=== PATIENT | female | born 1970 | race African-American/Black ===

== ENCOUNTER 2016-07-18 23:01 | Emergency (ER) | payer OTHER, MEDICAID ==
[2016-07-18 23:07] VITALS: BP 135/88; BMI 36.6
--- NOTE | 2016-07-18 23:44 | DR.GENAD ---
HPI - PCP Primary Care Physician: damien - Complaint/Symptoms Chief Complaint:: diarrhea 6 times today pt states" i might be dehydrated cause i been having diarrhea since thrusday" - Source History Provided: Patient - Mode of Arrival Mode of Arrival: Ambulatory - Timing Onset of Chief Complaint: 07/14/16 PMH - PMH Past Medical History: Yes Past Medical History: Anxiety, Asthma, Depression, Hypertension Past Surgical History: Yes Surgical History: Hysterectomy, Lithotripsy Past Surgical History Comment: lt breast lumpectomy - Family History History of Family Medical Conditions: Yes Family Medical History: Diabetes Mellitus, Cancer, Hypertension - Social History Alcohol Use: None Do you use any recreational Drugs:: No Lives With: Family Lives Where: Home - infectious screening In the last 2 months have you had wt loss of >10#?: NO Have you had fever, night sweats or hemotysis?: No Have you traveled outside the country in the last 6 months?: No Isolation: Standard ROS - Review of Systems Constitutional: No Symptoms Reported Eyes: No Symptoms Reported ENTM: No Symptoms Reported Respiratoy: No Symptoms Reported Cardiovascular: No Symptoms Reported Gastrointestinal/Abdominal: No Symptoms Reported. negative: Abdominal Pain Genitourinary: No Symptoms Reported Neurological: No Symptoms Reported Musculoskeletal: No Symptoms Reported Integumentary: No Symptoms Reported Hematologic/Lymphatic: No Symptoms Reported PE - Vital Signs Vitals: Temperature 98.5 F Pulse Rate 78 Respiratory Rate 18 Blood Pressure [Right Arm] 143/82 Blood Pressure [Left Arm] 130/86 Blood Pressure 135/88 O2 Sat by Pulse Oximetry 99 - General Limitations: No Limitations General Appearance: Alert, In No Apparent Distress, Appears Intoxicated - Head Head Exam: Normal Inspection, Atraumatic - Eyes Eye exam: Normal Appearance, PERRL, EOMI - ENT ENT Exam: Normal Exam External Ear Exam: Normal External Inspection TM/Canal Exam: Bilateral Normal Nose Exam: Normal Nose Exam Mouth Exam: Normal Inspection Throat Exam: Normal Inspection - Neck Neck Exam: Normal Inspection - Chest Chest Inspection: Normal Inspection - Respiratory Respiratory Exam: Normal Lung Sounds Bilat Respiratory Exam: Bilateral Clear to Auscultation - Cardiovascular Cardiovascular Exam: Regular Rate, Normal Rhythm - Abdominal Exam Abdominal Exam: Normal Inspection, Normal Bowel Sounds Abdominal Tenderness: negative: RUQ, RLQ, LUQ, LLQ, Epigastrium, Suprapubic, Diffuse, Mild, Moderate, Severe, Other - Extremities Extremities Exam: Normal Inspection, Full ROM - Back Back Exam: Normal Inspection - Neurologic Neurological Exam: Alert, Oriented X3, CN II-XII Intact - Psychiatric Psychiatric Exam: Normal Affect, Normal Mood - Skin Skin Exam: Warm, Dry, Intact Course - Treatment Treatment: I discussed with patient the rational of not treating acute diarrheal illnesses - Reevaluation 1st: Unchanged - Diagnosis Discharge Problem: Diarrhea Qualifiers: Diarrhea type: unspecified type Qualified Code(s): R19.7 - Diarrhea, unspecified - Discharge Plan Condition: Stable - Follow ups/Referrals Follow ups/Referrals: NARAYAN PALACIOS [Primary Care Provider] - 3 days - Instructions
== END 2016-07-18 23:53 | disposition home or self-care (01) ==
LOC: ER 23:01
DX: R19.7 Diarrhea, unspecified (principal)
CPT/HCPCS: 99281; 99282

== ENCOUNTER 2016-08-01 19:50 | Emergency (ER) | payer OTHER, MEDICAID ==
[2016-08-01 20:06] VITALS: BP 145/83; BMI 37.0
--- NOTE | 2016-08-01 21:25 | DR.GENAD ---
HPI - PCP Primary Care Physician: PHILIP - Complaint/Symptoms Chief Complaint Doctors Comments: History as stated; onset this AM, itches, no known insect bite Chief Complaint:: PT HAS WHELP ON LT RIB AREA AND LT HIP UNKNOW WHAT MAY HAVE CAUSED IT - Source History Provided: Patient - Mode of Arrival Mode of Arrival: Ambulatory - Timing Onset of Chief Complaint: 07/31/16 PMH - PMH Past Medical History: Yes Past Medical History: Anxiety, Asthma, Depression, Hypertension Past Surgical History: Yes Surgical History: Hysterectomy, Lithotripsy - Family History History of Family Medical Conditions: No Family Medical History: Diabetes Mellitus, Cancer, Hypertension - Social History Do you use any recreational Drugs:: No Lives With: Family Lives Where: Home - infectious screening In the last 2 months have you had wt loss of >10#?: NO Have you had fever, night sweats or hemotysis?: No Have you traveled outside the country in the last 6 months?: No Isolation: Standard ROS - Review of Systems Eyes: No Symptoms Reported ENTM: No Symptoms Reported Respiratoy: No Symptoms Reported Cardiovascular: No Symptoms Reported Gastrointestinal/Abdominal: No Symptoms Reported Genitourinary: No Symptoms Reported Neurological: No Symptoms Reported Musculoskeletal: No Symptoms Reported Integumentary: Lesions (erythematous papules) Hematologic/Lymphatic: No Symptoms Reported Endocrine: No Symptoms Reported Psychiatric: No Symptoms Reported All Other Systems: Reviewed and Negative PE - Vital Signs Vitals: Temperature 98.6 F Pulse Rate 95 Respiratory Rate 18 Blood Pressure [Right Arm] 143/82 Blood Pressure [Left Arm] 130/86 Blood Pressure 145/83 O2 Sat by Pulse Oximetry 100 - General Limitations: No Limitations General Appearance: Alert, In No Apparent Distress - Head Head Exam: Normal Inspection, Atraumatic - Eyes Eye exam: Normal Appearance, PERRL, EOMI - ENT ENT Exam: Normal Exam External Ear Exam: Normal External Inspection TM/Canal Exam: Bilateral Normal Nose Exam: Normal Nose Exam Mouth Exam: Normal Inspection Throat Exam: Normal Inspection - Neck Neck Exam: Normal Inspection - Chest Chest Inspection: Normal Inspection - Respiratory Respiratory Exam: Normal Lung Sounds Bilat Respiratory Exam: Bilateral Clear to Auscultation - Cardiovascular Cardiovascular Exam: Regular Rate, Normal Rhythm - Abdominal Exam Abdominal Exam: Normal Inspection, Normal Bowel Sounds Abdominal Tenderness: negative: RUQ, RLQ, LUQ, LLQ, Epigastrium, Suprapubic, Diffuse, Mild, Moderate, Severe, Other - Extremities Extremities Exam: Normal Inspection, Full ROM - Back Back Exam: Normal Inspection - Neurologic Neurological Exam: Alert, Oriented X3, CN II-XII Intact - Psychiatric Psychiatric Exam: Normal Affect, Normal Mood - Skin Skin Exam: Warm, Dry, Rash (erythematous papules x2 upper left later back and left lateral hip), Other (skin is dermatographic) - Diagnosis Discharge Problem: Papular urticaria - Discharge Plan Condition: Stable - Follow ups/Referrals Follow ups/Referrals: NARAYAN PALACIOS [Primary Care Provider] - 3 days - Instructions
[2016-08-01] MEDS ORDERED: BENADRYL INJ 50 MG VIAL ONE (21:27)
[2016-08-01] MEDS ORDERED: PHENERGAN W/CODEINE 6.25MG/10MG PO ONE (21:28)
[2016-08-01] MEDS ORDERED: BENADRYL INJ 50 MG VIAL IM ONE (21:29)
== END 2016-08-01 22:01 | disposition home or self-care (01) ==
LOC: ER 20:13
DX: L28.2 Other prurigo (principal)
CPT/HCPCS: 96372; 99282; J1200

== ENCOUNTER → 2016-10-06 | Outpatient (CLI) | payer OTHER, MEDICAID | LOC: RAD 14:06 | PROVIDERS: ATTEND Physician Assistant | DX: R07.89 Other chest pain (principal) | CPT/HCPCS: 93306 ==

== ENCOUNTER → 2016-10-31 | Outpatient (CLI) | payer OTHER, MEDICAID | LOC: RAD 08:42 | PROVIDERS: ATTEND Physician Assistant | DX: R07.89 Other chest pain (principal); R06.02 Shortness of breath | CPT/HCPCS: 78452; 93017; A4222; A9502 ==

== ENCOUNTER 2017-02-13 11:17 | Emergency (ER) | payer OTHER, MEDICAID ==
[2017-02-13 11:24] VITALS: BP 144/74
--- NOTE | 2017-02-13 13:07 | RAD ---
Examination: Right foot, three views History: Injury and pain, hurts to walk Findings: There is no definite fracture, dislocation, bone destruction or arthropathy. The visualized soft tissues are unremarkable. Impression: No acute or significant right foot abnormality identified. Reported By:
--- NOTE | 2017-02-13 13:27 | DR.EXTPAIN ---
HPI - Time seen Time seen: 13:00 - PCP Primary Care Physician: PHILIP - HPI Comment HPI Comment: PAIN INTERMITENT. FLARE UP 2 DAYS AGO AND GETTING WORSE TODAY. NO TRAUMA. PAIN ON MEDS FOR RA AND CHRONIC PAIN. PAIN WORSE WHEN AMBULATING. - Complaint/Symptoms Chief Complaint Doctor Comments: PAIN ON TOP OF RIGHT FOOT FOR SEVERAL WEEKS. Chief Complaint:: PT C/O PAIN TO HER RIGHT FOOT AND THAT IT KEEP FLARING UP AND THAT SHE COULD HARDLY DRIVE ,, PT COULD NOT GET INTO SEE HER FOOT MD .. Self Treatment fo Chief Complaint: PT C/O SHOOTING PAIN THREW THE TOP OF HER RIGHT FOOT, PT USED CREAM AND SHE TOOK HER NORCO . - Nurses notes reviewed Nurses Notes Review: Yes - Source History Provided: Patient - Mode of arrival Mode of Arrival: Ambulatory - Timing Onset of Chief Complaint: 02/11/17 - Context History of: Arthritis - Associated signs and symptoms Associated Signs and Symptoms: Pain PMH - PMH Past Medical History: Yes Past Medical History: Anxiety, Asthma, Depression, Hypertension Past Medical History Comment: RA, FIBRO Past Surgical History: Yes Surgical History: Hysterectomy, Lithotripsy - Family History History of Family Medical Conditions: Yes Family Medical History: Diabetes Mellitus, Cancer, Hypertension - Social History Does patient currently use any type of tobacco product: No Have you used tobacco products in the last 12 months: No Type of Tobacco Use: None Does any household member use tobacco: No Alcohol Use: None Do you use any recreational Drugs:: No Lives With: Alone Lives Where: Home - infectious screening In the last 2 months have you had wt loss of >10#?: NO Have you had fever, night sweats or hemotysis?: No Have you traveled outside the country in the last 6 months?: No Isolation: Airborn/Negative Pressure ROS - Review of Systems Constitutional: No Symptoms Reported Eyes: No Symptoms Reported ENTM: No Symptoms Reported Respiratoy: No Symptoms Reported Cardiovascular: No Symptoms Reported Gastrointestinal/Abdominal: No Symptoms Reported Genitourinary: No Symptoms Reported Neurological: No Symptoms Reported Musculoskeletal: Right, Foot Integumentary: No Symptoms Reported Hematologic/Lymphatic: No Symptoms Reported Endocrine: No Symptoms Reported All Other Systems: Reviewed and Negative PE - Vital Signs Vitals: Temperature 97.9 F Pulse Rate 78 Respiratory Rate 22 Blood Pressure [Right Arm] 143/82 Blood Pressure [Left Arm] 130/86 Blood Pressure 144/74 O2 Sat by Pulse Oximetry 99 - General Limitations: No Limitations General Appearance: Alert - Head Head Exam: Normal Inspection - Eyes Eye exam: Normal Appearance - ENT ENT Exam: Normal External Ear Exam - Neck Neck Exam: Normal Inspection - Chest Chest Inspection: Symmetric Chest Wall Rise - Respiratory Respiratory Exam: Normal Lung Sounds Bilat Respiratory Exam: Bilateral Clear to Auscultation - Cardiovascular Cardiovascular Exam: Regular Rate, Normal Rhythm, Normal Heart Sounds - Abdominal Exam Abdominal Exam: Normal Inspection - Extremities Extremities Exam: Tenderness (RT REJECTED ITEMS CLERK. ROM TOES INTACT.) - Lower Extremities Foot/Toe Exam: Normal Inspection, Tenderness - Back Back Exam: Normal Inspection - Neurological Neurological Exam: Alert, Oriented X3 - Skin Skin Exam: Normal Color MDM - Differential Diagnosis Differential Diagnosis: Fracture, Sprain Course - Treatment Treatment: SEE ORDERS - Education/Counseling Education/Counseling: Patient, Education Educated On: Diagnosis, Needs for Follow Up ROR - XRAY XRAY Interpreted by: Radiologist XRAY Findings: REPORT DISCUSS WITH PATIENT. - Diagnosis Discharge Problem: Right foot pain - Discharge Plan Disposition: 01 HOME, SELF-CARE Condition: Stable - Follow ups/Referrals Follow ups/Referrals: NARAYAN PALACIOS [Primary Care Provider] - 3 days - Instructions Instructions: Musculoskeletal Pain Additional Instructions: RETURN TO ED IF WORSE.
== END 2017-02-13 14:01 | disposition home or self-care (01) ==
LOC: ER 11:50
DX: M79.671 Pain in right foot (principal)
CPT/HCPCS: 73630; 99282

== ENCOUNTER → 2017-08-22 | Outpatient (CLI) | payer OTHER, MEDICAID | LOC: LAB 13:14 | PROVIDERS: ATTEND Nurse Practitioner Family | DX: R79.82 Elevated C-reactive protein (CRP) (principal); R70.0 Elevated erythrocyte sedimentation rate | CPT/HCPCS: 36415; 85652; 86140 ==